=== PATIENT | male | born 1960 ===

== ENCOUNTER → 2024-02-08 06:33 | Day surgery (SDC) | payer OTHER, SELFPAY | LOC: GI 06:33 | PROVIDERS: ATTENDING PHYSICIAN Internal Medicine Gastroenterology | DX: Z12.11 Encounter for screening for malignant neoplasm of colon (principal); K57.30 Diverticulosis of large intestine without perforation or abscess without bleeding; K64.8 Other hemorrhoids; Z86.0101 Personal history of adenomatous and serrated colon polyps; K21.00 Gastro-esophageal reflux disease with esophagitis, without bleeding; K44.9 Diaphragmatic hernia without obstruction or gangrene; R12 Heartburn; Z80.0 Family history of malignant neoplasm of digestive organs | CPT/HCPCS: 45385; 43239; 88305 ==